=== PATIENT | female | born 1980 | race Caucasian/White ===

== ENCOUNTER 2024-12-03 06:52 | Emergency (ER) | payer SELFPAY ==
[~2024-12-03] VITALS: Ht 154.9 cm; Wt 58.1 kg
[2024-12-03] MEDS ORDERED: Ketorolac Tromethamine 15 MG/ML VIAL IV ONE (07:55)
[2024-12-03 08:20] LABS: BASO % 0.4 % (0.0-1.0); EOS # 0.1 10*3/uL (0.0-0.4); HEMATOCRIT 36.6 % (37.0-47.0); MEAN CELL VOLUME 79.7 fl (81.0-99.0); MEAN CORPUSCULAR HGB 25.3 pg (27.0-31.0); MEAN CORPUSCULAR HGB CONC 31.7 g/dl (33.0-37.0); MEAN PLATELET VOLUME 11.8 fl (9.6-12.3); MONO # 0.4 10*3/uL (0.1-1.0); MONO % 5.9 % (3.0-9.0); NEUT # 4.8 10*3/uL (2.3-7.9); PLATELET COUNT AUTOMATED 291 10*3/uL (130-400); RED BLOOD COUNT 4.59 10*6/uL (4.10-5.10); WHITE BLOOD COUNT 6.9 10*3/uL (4.8-10.8)
[2024-12-03 08:28] LABS: BILIRUBIN Negative (Negative); BLOOD Negative (Negative); COLOR Yellow (Yellow); GLUCOSE Negative (Negative); KETONE Negative (Negative); LEUKO ESTERASE Trace (Negative); NITRITE Negative (Negative); SPECIFIC GRAVITY <= 1.005 (1.001-1.030); UROBILINOGEN 0.2 E.U./dl (0.0-1.0)
[2024-12-03 08:29] LABS: CLARITY Clear (Clear)
[2024-12-03 08:40] LABS: BACTERIA 2+; EPITHELIAL CELLS 0-2
[2024-12-03 08:42] LABS: ALKALINE PHOSPHATASE 68 U/L (46-116); BUN 8 mg/dl (9-23); CHLORIDE 108 mmol/L (98-107); LIPASE 51 U/L (12-53); POTASSIUM 3.8 mmol/L (3.4-5.1); TOTAL PROTEIN 7.6 gm/dL (6.0-8.0)
[2024-12-03 08:51] LABS: SGPT/ALT < 7 U/L (5-49)
[2024-12-03] MEDS ORDERED: IOHEXOL 300 MG/ML 100 ML VIAL IV ONE (09:55)
[2024-12-03] MEDS ORDERED: IOHEXOL 300 MG/ML 100 ML VIAL ONE (10:16)
== END 2024-12-03 12:44 | disposition home or self-care (01) ==
LOC: ED 06:52
PROVIDERS: Emergency Medicine
DX: R10.11 Right upper quadrant pain (principal); R10.31 Right lower quadrant pain; Z88.8 Allergy status to other drugs, medicaments and biological substances